=== PATIENT | male | born 1970 | race Two or more races ===

== ENCOUNTER 2023-06-20 08:54 | Emergency (ER) | payer BC ==
[~2023-06-20] VITALS: Ht 170.2 cm; Wt 103.1 kg
[2023-06-20 09:35] VITALS: BP 134/74; PULSE 78; RESP 18; TEMP 98.1; O2SAT 96
[2023-06-20] MEDS ORDERED: KETOROLAC TROMETH 60MG/2ML VIAL IM ONE (11:30)
[2023-06-20] MEDS ORDERED: IBUP-1456 PO (12:48)
== END 2023-06-20 12:59 | disposition home or self-care (01) ==
LOC: ER 08:54
DX: K42.9 Umbilical hernia without obstruction or gangrene (principal); K76.0 Fatty (change of) liver, not elsewhere classified
CPT/HCPCS: 74176; J1885